=== PATIENT | female | born 1935 | race Caucasian/White ===

== ENCOUNTER 2017-06-05 13:51 | Emergency (ER) | payer MEDICARE, OTHER ==
[2017-06-05 14:12] VITALS: TEMP 98.3; O2SAT 97
[2017-06-05] MEDS ORDERED: SODIUM CHLORIDE 0.9% (FLUSH) 10 ML SYG IV PRN (14:24)
[2017-06-05] MEDS ORDERED: SODIUM CHLORIDE 0.9% 1000ML 1,000 ML IVS PRN (14:24)
[2017-06-05] MEDS ORDERED: MORPHINE SULFATE INJ 10 MG/ML VIAL IV ONE ×2 (14:30→15:55)
--- NOTE | 2017-06-05 14:39 | ED.PDOC ---
History of Present Illness - General Chief Complaint: Syncope/Near Syncope Stated Complaint: BILATERAL ARM PAIN, WEAKNESS Time Seen by Provider: 06/05/17 14:21 Source: patient, police Exam Limitations: no limitations - History of Present Illness Initial Comments: PT HAD JUST FINISHED HAVING AN OUTPATIENT CT DONE FOR LOWER BACK PAIN WHEN SHE SAT UP AND BECAME DIZZY. PT HAD A SYNCOPAL EPISODE, FELL OFF CT TABLE AND WAS FOUND TO BE WEDGED UP AGAINST BASE OF CT TABLE. PT APPEARS TO HAVE HYPEREXTENDED NECK AND NOW REPORTS PAIN TO BILATERAL ARMS AND INABILITY TO MOVE ARMS SINCE THE INCIDENT. Occurred: just prior to arrival Severity: moderate Pain Location: neck, upper extremity Method of Injury: fall Improving Factors: nothing Worsening Factors: nothing Loss of Consciousness: brief (seconds) Associated Symptoms (Fall): dizziness, neck pain Allergies/Adverse Reactions: Allergies NO KNOWN ALLERGY Allergy (Verified 06/05/17 14:12) Home Medications: Ambulatory Orders Esomeprazole Magnesium [Nexium] 40 mg PO DAILY 06/05/17 Furosemide Tab [Lasix Tab] 40 mg PO DAILY 06/05/17 Gabapentin [Neurontin] 300 mg PO DAILY 06/05/17 Levetiracetam [Levetiracetam] 1,000 mg PO TID 06/05/17 Metoprolol Succinate [Metoprolol Succinate ER] 25 mg PO DAILY 06/05/17 Potassium Chloride [K-Tab] 20 meq PO DAILY 06/05/17 Review of Systems - Review of Systems Constitutional: Denies: chills, fever EENTM: Denies: ear pain, nose congestion Respiratory: Denies: cough, short of breath Cardiology: Denies: chest pain, palpitations Gastrointestinal/Abdominal: Denies: nausea, vomiting Genitourinary: Denies: dysuria, frequency Musculoskeletal: Denies: joint pain, joint swelling Neurological: States: paresthesia, weakness. Denies: headache Past Medical History (General) - Patient Medical History Hx Seizures: Yes Hx Stroke: No Hx Congestive Heart Failure: Yes Hx Diabetes: No - Vaccination History Hx Influenza Vaccination: Yes Hx Pneumococcal Vaccination: Yes - Social History Hx Tobacco Use: No Family Medical History - Family History Mother Family History: Unknown Living Status: Unknown Physical Exam - Physical Exam General Appearance: Alert, Obvious distress, Well Developed, Well Groomed, Well Hydrated Head Injury: no evidence of injury Eye Exam: bilateral normal ENT Exam: hearing grossly normal, no evidence of ENT injury Neck Exam: normal alignment, spinous processes tender - MINIMAL, other - C- COLLAR IN PLACE Cardiovascular/Respiratory: regular rate, rhythm, no M/R/G, normal peripheral pulses Gastrointestinal/Abdominal: non tender, soft Back Exam: normal inspection, no vertebral tenderness Extremity Exam: no evidence of injury, non-tender Neurologic: alert, normal mood/affect, oriented x 3, motor weakness - OF BILATERAL UPPER EXTREMITIES, STRENGTH SYMETRIC OF BILATERAL LOWER EXTREMITIES. Skin Exam: normal color, warm/dry - [place] Coma Score Best Eye Response (Jenni): (4) open spontaneously Best Verbal Response (Jenni): (5) oriented Best Motor Response (Jenni): (6) obeys commands [place] Total: 15 Progress - Progress Progress: 06/05/17 15:45 PT REPORTS ONLY MODEST IMPROVEMENT IN PAIN AFTER IV MORPHINE. NOW RATING IT A 6 /10. PT IS ABLE TO MOVE UPPER EXTREMITIES SLIGHTLY MORE. ADDITIONAL MORPHINE ORDERED. AIR EVAC HERE LOADING PT ONTO STRETCHER - Results/Orders Results/Orders: 06/05/17 14:24 Telemetry .ONCE Sodium Chloride 0.9% (Flush) [Saline Flush Syringe] 10 ml IV PRN PRN Sodium Chloride 0.9% 1000ML [Ns 1000 ml] 1,000 ml IVS .QD EKG Assessment ONCE EKG Stat Pulse Oximetry Assessment DAILY URINALYSIS Stat 06/06/17 09:00 Pulse Ox Daily Laboratory Results - last 24 hr 06/05/17 06/05/17 06/05/17 14:24 14:24 14:24 WBC 6.1 RBC 4.18 L Hgb 13.0 Hct 38.8 MCV 92.7 MCH 31.1 H MCHC 33.6 RDW 13.6 Plt Count 258 MPV 8.0 Absolute Neuts (auto) 3.10 Absolute Lymphs (auto) 2.40 Absolute Monos (auto) 0.50 Absolute Eos (auto) 0.10 Absolute Basos (auto) 0.10 Neutrophils % 50.0 Lymphocytes % 39.1 Monocytes % 8.1 Eosinophils % 1.8 Basophils % 1.0 PT 12.0 INR 1.060 PTT (SP) 28.8 Sodium 138 Potassium 4.5 Chloride 103 Carbon Dioxide 27 Anion Gap 12.5 BUN 14 Creatinine 1.02 BUN/Creatinine Ratio 13.7 Random Glucose 106 H Serum Osmolality 276.6 Calcium 9.0 Total Bilirubin 0.4 AST 25 ALT 16 Alkaline Phosphatase 55 Creatine Kinase 188 H CK-MB (CK-2) 6.1 H* CK-MB (CK-2) % Not Reportable Troponin I 0.13 H* Serum Total Protein 7.3 Albumin 3.7 Globulin 3.6 H Albumin/Globulin Ratio 1.0 L Amylase 88 Ethyl Alcohol 06/05/17 14:24 WBC RBC Hgb Hct MCV MCH MCHC RDW Plt Count MPV Absolute Neuts (auto) Absolute Lymphs (auto) Absolute Monos (auto) Absolute Eos (auto) Absolute Basos (auto) Neutrophils % Lymphocytes % Monocytes % Eosinophils % Basophils % PT INR PTT (SP) Sodium Potassium Chloride Carbon Dioxide Anion Gap BUN Creatinine BUN/Creatinine Ratio Random Glucose Serum Osmolality Calcium Total Bilirubin AST ALT Alkaline Phosphatase Creatine Kinase CK-MB (CK-2) CK-MB (CK-2) % Troponin I Serum Total Protein Albumin Globulin Albumin/Globulin Ratio Amylase Ethyl Alcohol < 5.40 - EKG/XRAY/CT EKG: Sinus - @81BPM, NL INTERVALS, NL AXIS, no ST T wave changes - NO OLD FOR COMPARISON Departure - Departure Clinical Impression: Hyperextension injury of cervical spine, Weakness of both upper extremities, Syncope, Head injury without concussion or intracranial hemorrhage, Elevated troponin level Time of Disposition: 14:27 Disposition: Transfer to Hospital Condition: Serious Departure Forms: ED Discharge - Pt. Copy, Patient Portal Self Enrollment Referrals: MOISE VARELA [Primary Care Provider] - 1-2 Weeks Home Medications: Ambulatory Orders Esomeprazole Magnesium [Nexium] 40 mg PO DAILY 06/05/17 Furosemide Tab [Lasix Tab] 40 mg PO DAILY 06/05/17 Gabapentin [Neurontin] 300 mg PO DAILY 06/05/17 Levetiracetam [Levetiracetam] 1,000 mg PO TID 06/05/17 Metoprolol Succinate [Metoprolol Succinate ER] 25 mg PO DAILY 06/05/17 Potassium Chloride [K-Tab] 20 meq PO DAILY 06/05/17 Transfer to Outside Facility - Transfer Information Accepting Provider:: DR. 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
--- NOTE | 2017-06-05 15:03 | CT ---
EXAM DESCRIPTION: Cervical Spine: Computed Tomography. CLINICAL HISTORY: HEAD INJURY, PATIENT FELL. B/L UPPER EXTREMITY WEAKNESS COMPARISON: CT scan of the lumbar spine and head on this visit. TECHNIQUE: Spiral, axial 2.5 mm scans through the cervical spine without contrast. Coronal and sagittal 2.0 mm Reconstructions. Total Exam DLP: 271.61 mGy-cm. This exam was performed according to our departmental dose-optimization program which includes automated exposure control, adjustment of the mA and/or kV according to patient size and/or use of iterative reconstruction technique; to reduce radiation dose to as low as reasonably achievable (ALARA). FINDINGS: No compression type vertebral body fractures. No significant subluxation. No fractures of the posterior elements. No perched or locked facets. No craniovertebral disassociation. Arthrosis of the atlantoaxial joint. Calcification of the transverse ligament with no displacement. Bilateral C1-2 facets demonstrating minimal arthrosis on the left with no fracture. Minimal arthrosis of the atlantooccipital facets with no fracture or displacement. Narrowing of the C4-5 C5-6 and C6-7 disc spaces with circumferential bony ridging and endplate spurs more at the lower 2 levels. There is near- stenosis of the right C5-6 and C6-7 neural foramina. Near stenosis of the C5-C6 Canal in the midline into the right of midline by disc osteophyte complex bulge. Arthrosis of the left C4-5 facets. Trace retrolisthesis C5-6 and C6-7. No bony canal stenosis at these levels. Minimal facet arthrosis on the left at C2-3 C3-4 and C4-5 and on the right at C3-4. Also bilaterally T1-T2. No significant bony canal or neural foraminal narrowing at these levels. Upper cervical spine is slightly kyphotic. IMPRESSION: 1. No cervical spine fracture, no significant subluxation or spondylolisthesis. 2. Multiple levels of spondylosis, facet arthrosis, bony canal and neural foraminal narrowing as noted in the findings. 3. This exam is limited for evaluation of the cord or discs. Electronically signed by: Roddy Alvarez MD 06/05/2017 3:00 PM CDT
--- NOTE | 2017-06-05 15:22 | CT ---
EXAM DESCRIPTION: Head: Computed Tomography. CLINICAL HISTORY: HEAD INJURY COMPARISON: CT cervical spine and lumbar spine on this visit. TECHNIQUE: Non-helical axial scans through the skull and brain, at 5.0 mm intervals, non-contrast. Axial 2.5 mm reconstructions. Coronal and sagittal 2.0 mm reconstructions. Total Exam DLP: 859.97 mGy-cm. This exam was performed according to our departmental dose-optimization program which includes automated exposure control, adjustment of the mA and/or kV according to patient size and/or use of iterative reconstruction technique; to reduce radiation dose to as low as reasonably achievable (ALARA). FINDINGS: No hemorrhage, no mass-effect, and no midline shift. Minimal periventricular white matter low-density in the frontal parietal and occipital lobes. No abnormal radiodense material in the brain parenchyma. Vascular calcifications not present; physiologic calcifications in the pineal gland and choroid plexus. 8.8 x 7.1 mm partially calcified radiodense mass abutting the parasagittal cortical vargas matter of the right frontal lobe near the olfactory region, and abutting the anterior falx. Superior to calcification in the falx. Minimal focal mass effect. No effacement or displacement of the ventricles, CSF spaces, or subdural spaces. No extra axial fluid collection or hemorrhage. No gross abnormalities of the bony calvarium. Included paranasal sinuses and mastoid air cells are well - aerated. IMPRESSION: 1. No hemorrhage, no mass effect, no midline shift. 8 millimeter partially calcified mass between the anterior falx and the parasagittal right frontal cortical vargas matter abutting the olfactory lobe may represent a meningioma. No skull fracture. 2. CT scans are insensitive for detecting small CVAs in the first 24 hours after onset. Evaluation of the brain stem is also limited. If symptoms persist, consider MRI scan of the brain with diffusion imaging. Electronically signed by: Roddy Alvarez MD 06/05/2017 3:20 PM CDT
[2017-06-05 15:31] VITALS: BP 152/86
== END 2017-06-05 16:00 | disposition short-term general hospital (02) ==
LOC: ER 13:51
DX: S19.89XA Other specified injuries of other specified part of neck, initial encounter (principal); S09.90XA Unspecified injury of head, initial encounter; R55 Syncope and collapse; R79.89 Other specified abnormal findings of blood chemistry; M62.81 Muscle weakness (generalized); I50.9 Heart failure, unspecified; W17.89XA Other fall from one level to another, initial encounter; Y92.238 Other place in hospital as the place of occurrence of the external cause
CPT/HCPCS: 70450; 72125; 80053; 80320; 82150; 82550; 82553; 84484; 85025; 85610; 85730; 93005; 94760; J2270; J7030